=== PATIENT | female | born 1950 | race Caucasian/White ===

== ENCOUNTER → 2022-09-01 | Outpatient (CLI) | payer MEDICARE, OTHER ==
[2022-09-01 11:31] LABS: Influenza A Negative (NEGATIVE); Influenza B Negative (NEGATIVE)
[2022-09-01 17:16] LABS: Hematocrit 38.1 % (33.0-51.0); Hemoglobin 12.2 g/dL (11.5-16.0); Mean Corpuscular HGB 26.5 pg (26.0-34.0); Mean Corpuscular Volume 83 fL (80-100); Mean Platelet Volume 12.4 fL (9.1-12.4); Platelet Count 146 K/mm3 (150-400); RDW Standard Deviation 50.7 fL (35.1-46.3); White Blood Cell Count 4.91 K/mm3 (4.00-11.30)
[2022-09-01 17:39] LABS: Magnesium, Blood 2.4 mg/dL (1.6-2.4)
[2022-09-01 17:59] LABS: Bun/Creatinine Ratio 43.3 (12.0-20.0); Calcium, Blood 9.2 mg/dL (8.5-10.1); Creatinine, Blood 1.34 mg/dL (0.40-1.00); Potassium, Blood 4.3 mmol/L (3.5-5.5)
== END ==
LOC: LAB UVN 09:43 → EDSTATUS 10:35
PROVIDERS: Internal Medicine
DX: J39.8 Other specified diseases of upper respiratory tract (principal); R09.89 Other specified symptoms and signs involving the circulatory and respiratory systems; E11.42 Type 2 diabetes mellitus with diabetic polyneuropathy; E03.9 Hypothyroidism, unspecified; E11.22 Type 2 diabetes mellitus with diabetic chronic kidney disease; N18.30 Chronic kidney disease, stage 3 unspecified
CPT/HCPCS: 80048; 82607; 82746; 83735; 85027; 87804